=== PATIENT | female | born 1970 | race Caucasian/White ===

== ENCOUNTER 2024-10-31 06:42 | Day surgery (SDC) | payer OTHER ==
[2024-10-31] MEDS ORDERED: DIPHENHYDRAMINE HCL 50 MG/ML VIAL 1ML IV STA (08:35)
[2024-10-31] MEDS ORDERED: MIDAZOLAM HCL 2 MG/2 ML VIAL IV STA (08:35)
[2024-10-31] MEDS ORDERED: FentaNYL CITRATE/PF 50MCG/ML 2ML VIAL IJ STA (08:37)
== END 2024-10-31 10:15 | disposition home or self-care (01) ==
LOC: AMB-ENDOS 06:42
PROVIDERS: ATTEND Internal Medicine Gastroenterology
DX: K57.30 Diverticulosis of large intestine without perforation or abscess without bleeding (principal); Z12.11 Encounter for screening for malignant neoplasm of colon; Z88.6 Allergy status to analgesic agent